=== PATIENT | male | born 1945 | race Caucasian/White ===

== ENCOUNTER 2023-04-11 15:48 | Emergency (ER) | payer OTHER ==
[~2023-04-11] VITALS: Ht 175.3 cm; Wt 86.2 kg
[2023-04-11 16:00] VITALS: BP_SYST 131; PULSE 104; RESP 18; TEMP 98.7; O2SAT 95
[2023-04-11 17:30] LABS: INFLUENZA TYPE A Negative (NEGATIVE); INFLUENZA TYPE B NEGATIVE (NEGATIVE)
[2023-04-11 17:45] VITALS: BP_SYST 138; PULSE 75; RESP 19; TEMP 97; O2SAT 92
[2023-04-11] MEDS ORDERED: ALBMDI INH (17:46)
[2023-04-11] MEDS ORDERED: DIPH25CA83 PO (17:46)
== END 2023-04-11 17:55 | disposition home or self-care (01) ==
LOC: SED 15:48
DX: J40 Bronchitis, not specified as acute or chronic (principal); Z88.0 Allergy status to penicillin; Z20.822 Contact with and (suspected) exposure to COVID-19
CPT/HCPCS: 36415; 71045; 99283